=== PATIENT | female | born 2000 | race Caucasian/White ===

== ENCOUNTER → 2023-11-11 09:25 | Outpatient (REF) | payer OTHER, SELFPAY | LOC: MRI 3T 09:25 | PROVIDERS: ATTENDING PHYSICIAN Nurse Practitioner Family | DX: G43.109 Migraine with aura, not intractable, without status migrainosus (principal) | CPT/HCPCS: 70553; A9575 ==

== ENCOUNTER 2024-06-13 21:24 | Emergency (ER) | payer BC, SELFPAY ==
[2024-06-13 21:33] VITALS: BP 132/87
[2024-06-13 21:49] VITALS: BP 141/90
[2024-06-13 22:02] VITALS: BMI 30.9
[2024-06-13 22:09] LABS: % Basophils 0.6 % (0-2); % Eosinophils 1.5 % (0-6); % Immature Granulocytes 0.2 % (0-0.5); % Lymphocytes 34.7 % (20.5-51.1); % Monocytes 6.8 % (1.7-9.3); % Neutrophils 56.2 % (42.2-75.2); Absolute Basophils 0.1 10^3/uL (0-0.2); Absolute Eosinophils 0.1 10^3/uL (0-0.7); Absolute Monocytes 0.6 10^3/uL (0.1-0.6); Absolute Neutrophils 4.9 10^3/uL (1.4-6.5); Hematocrit 39.2 % (37.0-47.0); Hemoglobin 13.6 g/dL (12.0-16.0); Mean Corp Hgb Conc. 34.7 g/dL (33.0-37.0); Mean Corpuscular Hgb 29.7 pg (27.0-31.0); Mean Corpuscular Volume 85.6 fL (81.0-99.0); Mean Platelet Volume 10.6 fL (7.4-10.4); Nucleated Red Blood Cells % 0 %; Platelet Count 293 10^3/uL (130-400); Red Blood Cell Count 4.58 10^6/uL (4.20-5.40); Red Cell Dist. Width 12.6 % (11.5-14.5); White Blood Cell Count 8.8 10^3/uL (4.8-10.8)
[2024-06-13 22:23] LABS: HCG, Serum Qualitative Screen Negative
[2024-06-13 22:24] LABS: ALT (SGPT) 22 U/L (0-35); AST (SGOT) 32 U/L (14-36); Albumin 4.4 g/dl (3.5-5.0); Alkaline Phosphatase 59 U/L (38-126); Blood Urea Nitrogen 15 mg/dl (7-17); Calcium 9.7 mg/dl (8.4-10.2); Carbon Dioxide 24 mmol/L (22-30); Chloride 105 mmol/L (98-107); Estimated Creatinine Clearance 111 ml/min; Glucose 100 mg/dl (70-99); Potassium 4.3 mmol/L (3.5-5.1); Sodium 138 mmol/L (135-145); Total Bilirubin 0.5 mg/dl (0.2-1.3); Total Protein 7.9 g/dl (6.3-8.2); eGFR > 60.00
--- NOTE | 2024-06-13 22:58 | ED.GENMED ---
History of Present Illness
General
Chief Complaint: Cardiac Symptoms
Source: patient
Time Seen by Provider: 06/13/24 21:58
History of Present Illness
History of Present Illness:
24-year-old female who was recently taken off Lexapro and BuSpar. The patient states that occurred about 1 and half weeks ago. She states that on she started having palpitations. She states she was curious if it was related. Patient
admits that she came off Lexapro because losing weight. She denies chest pain or shortness of breath. No leg swelling. No lightheadedness or syncope. No near syncope. No calf pain. Takes control but otherwise healthy
Past History
Past History
ED Past Medical History: Psychiatric (Anxiety) and Other (Nephrolithiasis)
ED Past Surgical History: None
Social History
Tobacco: Non-smoker
Alcohol: None
Drug: None
Personal: Single
Living: with family
Employment: Student
Family History
Family History: Other (Mother grandmother from cerebral aneurysm)
Phy Exam
Physical Exam
Physical Exam:
CONSTITUTIONAL Patient alert and oriented to person, place and time. Well-appearing. Vital signs reviewed.
HEAD atraumatic, normocephalic.
EYES eyelids normal to inspection, Extraocular muscles intact, Conjunctiva normal, Sclera normal.
NECK normal range of motion, Trachea midline, no jugular venous distention.
RESPIRATORY CHEST No respiratory distress noted, Chest expansion equal, Bilateral breath sounds clear.
CARDIOVASCULAR regular rate and rhythm, Heart sounds normal.
ABDOMEN abdomen nontender, Bowel sounds normal. No distention.
BACK normal inspection, no obvious deformities
UPPER EXTREMITY range of motion normal, Motor strength normal, no cyanosis, no edema.
LOWER EXTREMITY range of motion normal, Motor strength normal, no cyanosis, no edema.
NEURO Speech normal, No focal motor deficits, Woody coma scale 15, Memory normal, Cranial Nerves intact to screening exam.
SKIN skin warm, dry, and normal in color.
Course
Orders/Labs/Results
Orders:
Orders
06/13/24 21:25
Electrocardiogram (*1) Urgent
Reason for Study: Palpitations
EKG- Treatment ONCE
06/13/24 21:38
Test Result ONCE
06/13/24 21:59
CMP [Comprehensive Metabolic Panel] Urgent
Complete Blood Count/With Diff Urgent
HCG, Serum Qualitative Screen Urgent
Comment: .
Abnormal Lab Results
06/13/24
21:59
MPV 10.6 H fL
(7.4-10.4)
Glucose 100 H mg/dl
(70-99)
06/13/24 21:59
06/13/24 21:59
Vital Signs
Initial and Last Documented VS:
Initial Vital Signs
Temp Pulse Resp BP Pulse Ox
98.8 F 88 20 132/87 100
06/13/24 21:33 06/13/24 21:33 06/13/24 21:33 06/13/24 21:33 06/13/24 21:33
Last Documented Vital Signs
Temp Pulse Resp BP Pulse Ox
98.8 F 85 19 111/97 100
06/13/24 21:33 06/13/24 23:00 06/13/24 23:00 06/13/24 23:00 06/13/24 21:33
MDM/Problems Addressed
Differential Diagnosis Includes:
PVCs, PACs, electrolyte disturbance, medication reaction, A-fib, SVT
MDM/Problems Addressed:
Palpitations, medication reaction
*Pulse Oximetry
Patient hypoxic: no
*EKG
Interpreted by ED Provider?: Yes
Interpretation: normal
Rate: normal
Rhythm: sinus
[place]: normal axis
Interval: normal interval
QRS Pattern: normal QRS
Ischemia: no ischemia
*Geology Scientist Interpretation
Rate: normal
Interpretation: normal
Rhythm: sinus
*Critical Care Note
Total Time (30-74mins, 75-104mins- exclusive of procedures): Not Applicable
Data Reviewed
Source: patient
Further Testing Considered But Not Given:
Consider D-dimer but no hypoxia or shortness of breath and no PE risks
Patient Management
Escalation/DeEscalation of care consider admission/obs:
Suspect symptoms related to coming off of Lexapro and starting BuSpar. She otherwise appears well. Intervals normal. Normal sinus rhythm on telemetry monitoring. Okay for discharge. Recommended follow-up as outpatient with hopes that symptoms
resolve
ED Attending Note
-
Portions of this chart may have been created with voice recognition software.� Occasional wrong word or��sound alike� substitutions may have occurred due to the inherent limitations of voice recognition software.
Discharge Plan
Departure
Patient Disposition: Home (Routine Discharge)
Date of Disposition: 06/13/24
Time of Disposition: 22:58
Patient with high blood pressure during this ER visit?: No
Discharge Problem:
Palpitations
Instructions: Palpitations
Prescriptions:
No Action
escitalopram oxalate 20 MG tablet
20 mg PO DAILY
ondansetron HCl 4 mg tablet
4 mg PO Q6H PRN (Reason: nausea and vomiting) Qty: 10 0RF
cephalexin 500 mg capsule
500 mg PO BID 7 Days Qty: 14 0RF
Referrals:
Adri Baptiste CRNP [Family Provider] -
Activity Restrictions/Additional Instructions:
Please see your doctor in the next 1 to 2 weeks for follow-up and reevaluation. It is good that your symptoms are related to the change in medications. Return immediate for shortness of breath, chest pain, vomiting, worsening symptoms, passing out
episode or any other concerns
Interventions
Interventions:
*Risk Screen - Suicide Last Done: 06/13/24 21:33
*General Assessment Last Done: 06/13/24 21:33
*Neglect/Abuse Screening Last Done: 06/13/24 21:33
*ED- Fall Risk Assessment Last Done: 06/13/24 21:33
*ED COVID-19 Vaccine History Last Done: 06/13/24 21:33
*Nursing Disposition Last Done: 06/13/24 23:11
ED- Pulmonary Assessment Last Done: 06/13/24 21:41
ED- Cardiac Assessment Last Done: 06/13/24 21:41
Discharge Date and Time
Print Language: TELUGU
[2024-06-13 23:00] VITALS: BP 111/97
== END 2024-06-13 23:11 | disposition home or self-care (01) ==
LOC: EMR 21:24
PROVIDERS: Student in an Organized Health Care Education/Training Program; EMERGENCY PHYSICIAN Emergency Medicine; FAMILY PHYSICIAN Nurse Practitioner Family
DX: R00.2 Palpitations (principal); F41.9 Anxiety disorder, unspecified
CPT/HCPCS: 99283; 80053; 84703; 85025; 93005

== ENCOUNTER 2024-09-14 06:27 | Day surgery (SDC) | payer BC, SELFPAY | END 2024-09-14 16:03 | disposition home or self-care (01) | LOC: GI 06:27 | PROVIDERS: ATTENDING PHYSICIAN Internal Medicine Gastroenterology | DX: R19.4 Change in bowel habit (principal); K52.9 Noninfective gastroenteritis and colitis, unspecified; K92.1 Melena; K62.9 Disease of anus and rectum, unspecified | CPT/HCPCS: 45380; 88305 ==